=== PATIENT | female | born 1960 | race Caucasian/White ===

== ENCOUNTER 2017-02-01 16:39 | Emergency (ER) | payer MEDICAID ==
[~2017-02-01 16:39] MED LIST: BP MED; BUSPAR10 MG PO; CARAFATE1 G2 PO; FEOSOL325 M1 PO; NEURONTIN300 MG PO; NEURONTIN600 M1 PO; PROTONIX40 M2 PO; PROZAC10 MG PO; TRAZODONE100 MG PO; ULTRAM50 M1 PO
[2017-02-01] MEDS ORDERED: NO HOME MEDICATION XX (17:41)
== END 2017-02-01 20:44 ==
LOC: EDMED 16:39
DX: Z60.9 Problem related to social environment, unspecified (principal); R53.1 Weakness; M79.662 Pain in left lower leg; I10 Essential (primary) hypertension; J44.9 Chronic obstructive pulmonary disease, unspecified; F32.9 Major depressive disorder, single episode, unspecified; F17.200 Nicotine dependence, unspecified, uncomplicated